=== PATIENT | female | born 1965 | race Caucasian/White ===

== ENCOUNTER → 2017-07-03 | Day surgery (SDC) | payer OTHER ==
--- NOTE | 2017-06-29 16:58 | Diagnostic Imaging Report ---
PROCEDURE: Frontal and lateral views of the chest. COMPARISON: None. INDICATIONS: PRE-OP FOR FOOT SURGERY FINDINGS: Lines/tubes: None. Lungs: The lungs are well inflated and clear. There is no evidence of pneumonia or pulmonary edema. Pleura: There is no pleural effusion or pneumothorax. Heart and mediastinum: The heart and the mediastinum are normal. Bones: No acute bony abnormality. IMPRESSION: 1. No acute cardiopulmonary disease. Dictated by: Kayden Hancock M.D. on 06/29/2017 at 16:58 Electronically approved by: Kayden Hancock M.D. on 06/29/2017 at 16:58
[~2017-07-03] MED LIST: BUPIVACAINE HCL 0.5% 10ML MPF VIAL INJ ONE; CEFAZOLIN SOD 2 GM/D5W 50ML 50 ML IV ONE; DEXAMETHASONE SOD PHOS INJ 4 MG/ML VIAL ONE; FENTANYL CITRATE/PF 100MCG/2 ML INJ ONE; KETOROLAC TROMETHAMINE 30 MG/ML VIAL ONE; LIDOCAINE HCL 2% LOCAL INJ 5 ML SDV VIAL INJ ONE; MIDAZOLAM HCL 2 MG/2 ML VIAL ONE; NEOMYCIN/POLYMYX/BACITR OINT 0.9 GM PKT ONE; ONDANSETRON HCL INJ 2 MG/ML VIAL ONE; PROPOFOL IV EMULSION 10 MG/ML 20 ML VIAL ONE; SEVOFLURANE INHAL SOLN 250 ML PEN BTL ONE
--- OUTSIDE RECORDS SUMMARY | 2017-07-03 06:32 | XMS REPORT ---
Author Author [facility] Address Unknown Phone Unavailable Care Team Providers Care Clipper Automatic Name Role Phone DAQUAN SCHMID Unavailable Unavailable Problems This patient has no known problems. Allergies, Adverse Reactions, Alerts This patient has no known allergies or adverse reactions. Medications This patient has no known medications. Results Test Description Test Time Test Comments Text Results Atomic Results Result Comments CHEST 2 VIEWS [place] [address] Patient Name: MICHELLE BUSTAMANTE MR #: [id number] : 1965 Age/Sex: 52/F Req # : [id number] Adm Physician: Ordered by: DAQUAN SCHMID DPM Report #: [id number] Location: OR Room/Bed: Procedure: [id number] DX/CHEST 2 VIEWS Exam Date: 06/29/17 Exam Time: 1545 REPORT STATUS: Signed PROCEDURE: Frontal and lateral views of the chest. COMPARISON: None. INDICATIONS: PRE-OP FOR FOOT SURGERY FINDINGS: Lines/tubes: None. Lungs: The lungs are well inflated and clear. There is no evidence of pneumonia or pulmonary edema. Pleura: There is no pleural effusion or pneumothorax. Heart and mediastinum: The heart and the mediastinum are normal. Bones: No acute bony abnormality. IMPRESSION: 1. No acute cardiopulmonary disease. Dictated by: Kayden Hancock M.D. on 06/29/2017 at 16:58 Electronically approved by: Kayden Hancock M.D. on 06/29/2017 at 16:58 Dictated By: KAYDEN HANCOCK MD 56 Transcribed By: HOMAR on 06/29/171657 COPY TO: DAQUAN SCHMID DPM
--- NOTE | 2017-07-05 16:10 | Operative Report ---
DATE OF PROCEDURE: AGE: 52. ROOM NUMBER: Outpatient [facility]. PREOPERATIVE DIAGNOSIS: Cystic lesion, ganglion, dorsal aspect of the right foot. POSTOPERATIVE DIAGNOSIS: Cystic lesion, ganglion, dorsal aspect of the right foot. TITLE OF OPERATION: Excision of the ganglion cyst, right foot. ANESTHESIA: General endotracheal. HEMOSTASIS: Right thigh tourniquet at 350 mmHg. PROCEDURE IN DETAIL: The patient was taken to the operating room in a mildly sedated state and placed upon the operating table in supine position. Following induction of general anesthetic, the right lower extremity was elevated to 60 degrees to exsanguinate before inflating the pneumatic thigh tourniquet to 350 mmHg to aid in hemostasis. Right lower extremity was placed upon the operating table prior to performing the following procedure. Procedure #1: Excision of ganglion cyst, right foot. A linear longitudinal incision was made across the dorsolateral aspect of the right foot. The incision was deepened via sharp and blunt dissection at level of dorsal capsular structure. Care was taken to identify and retract all vital structures encountered. A very large lobulated ganglion cyst was noted within the subcutaneous tissue and this was dissected down to the joint level where the joint was scraped and stalk removed. The entirety of the lesion was resected in one piece. There was a separate lobulated lesion further medially, which was also resected and all were sent to pathology. The areas were irrigated with copious amounts of sterile saline solution. An electrical cautery was used to cauterize the base of the joint where the stalk was extending from. After copious irrigation, deep closure was 3-0 Vicryl and 4-0 nylon. The underlying tissues were injected with a combination of human tissue allograft to facilitate healing and prevent recurrence as well as 0.5% Marcaine and Decadron [place]. Release of the pneumatic thigh tourniquet showed a normal hyperemic flush to all digits of the right foot. Patient left the operating room with vital signs stable in apparent satisfactory condition, having tolerated both the anesthetic and procedure very well. Job#: [id number] VAS
== END | disposition home or self-care (01) ==
LOC: OR 06:30
PROVIDERS: ATTEND Podiatrist Foot Surgery
DX: M67.471 Ganglion, right ankle and foot (principal); E66.9 Obesity, unspecified; F17.210 Nicotine dependence, cigarettes, uncomplicated; Z01.810 Encounter for preprocedural cardiovascular examination; Z01.818 Encounter for other preprocedural examination
CPT/HCPCS: 28090; 71046; 88304; 93005; J1100; J1885; J2001; J2250; J2405